=== PATIENT | female | born 1995 | race Caucasian/White ===

== ENCOUNTER → 2021-05-17 18:02 | Outpatient (CLI) | payer OTHER, SELFPAY ==
--- NOTE | ~2021-05-17 | MR_ITS ---
EXAMINATION: MR hip LT wo con DATE: 05/17/2021 19:28 INDICATION: Left hip pain TECHNIQUE: Magnetic resonance imaging (MRI) of the left hip was performed without intravenous contra st. Sequences included full-field axial PD-weighted FS FSE and T1-weighted FSE, coronal of the pelvis with PD-weighted FS FSE, small field of view of the affected hip with axial PD-weighted FS FSE, sag ittal PD-weighted FS FSE and coronal PD weighted FS FSE. Additional radial T1-weighted FGR oriented o rthogonal to the acetabular rim were obtained for evaluation of the labrum. COMPARISON: None FINDINGS: Bones/labrum/cartilage: Alignment is normal. No fracture, avascular necrosis or pathologic marrow replacing process. Labrum is normal. Articular cartilage is normal. Fluid: Symmetric physiologic amount of fluid within both hip joints. Soft tissues: Normal and symmetric muscle bulk and signal in the pelvis and visualized proximal thighs. There is a mild partial tear at the iliac origin of left rectus femoris tendon. This appears to involve more pro minently the reflected head with tiny partial tear at the origin of the direct head where there is a tiny subcortical cyst. The majority of both hands of the tendon remain intact. The iliopsoas, gluteal and proximal hamstring tendons are normal. Limited evaluation of visceral organs of the pelvis is un remarkable. No pathologically enlarged pelvic/inguinal lymphadenopathy. IMPRESSION: 1. Mild partial tears at the insertion origin of the reflected head and to lesser degree direct head of the left rectus femoris tendon. Reviewed, dictated and finalized at location A. IMPRESSION: 1. Mild partial tears at the insertion origin of the reflected head and to less er degree direct head of the left rectus femoris tendon.
== END ==
PROVIDERS: Visit Provider Family Medicine
DX: S76.912A Strain of unspecified muscles, fascia and tendons at thigh level, left thigh, initial encounter (principal)
CPT/HCPCS: 73721